=== PATIENT | male | born 1960 | race Caucasian/White ===

== ENCOUNTER 2022-12-25 07:06 | Day surgery (SDC) | payer BC ==
[2022-12-25] MEDS ORDERED: Sodium Chloride 0.9% 1,000 ML IV SCH (07:30)
[2022-12-25] MEDS ORDERED: fentaNYL 50 MCG/ML SDV ONE (07:36)
[2022-12-25] MEDS ORDERED: Midazolam 1 MG/ML 2 ML SDV ONE (07:36)
[2022-12-25] MEDS ORDERED: Propofol 200 MG/20 ML SDV ONE ×2 (07:36→08:54)
[2022-12-25 09:52] VITALS: BP 128/70; PULSE 68
== END 2022-12-25 10:05 | disposition home or self-care (01) ==
LOC: JP.SDS 07:06
PROVIDERS: ATTEND Surgery
DX: Z12.11 Encounter for screening for malignant neoplasm of colon (principal); K31.7 Polyp of stomach and duodenum; K21.00 Gastro-esophageal reflux disease with esophagitis, without bleeding; K31.89 Other diseases of stomach and duodenum; E78.5 Hyperlipidemia, unspecified; E66.3 Overweight; Z68.25 Body mass index [BMI] 25.0-25.9, adult; Z88.2 Allergy status to sulfonamides
CPT/HCPCS: 43239; 45378; 88305; J2250; J2704; J3010; J7030